=== PATIENT | female | born 1955 | race Caucasian/White ===

== ENCOUNTER 2018-10-18 15:00 | Emergency (ER) | payer MEDICARE, OTHER ==
[~2018-10-18] VITALS: Ht 167.6 cm; Wt 108.9 kg
[2018-10-18] MEDS ORDERED: NS IV 500 ML 500 ML IV ONE (16:02)
--- NOTE | 2018-10-18 16:15 | ED General ---
General Chief Complaint: Dizziness/Syncope Stated Complaint: DIZZINESS Nursing Triage Note: TO TRIAGE VIA WC. TWO SEPERAT COMPLAINTS. LAST NIGHT HAD A BOUT OF VOMITING AND WHEN SHE LAYED DOWN THE ROOM STARTED SPINNING. DENIES NAUSEA AT THIS TIME BUT STILL COMPLAINS OF DIZZINESS. X4 DAYS AGO A BOIL APPEARED ON HER LEFT HAD. BOIL OPENED UP YESTERDAY AND A LARGE AMOUNT OF PUSS EXPELLED AND SHE WOULD LIKE IT LOOKED AT. Nursing Sepsis Screen: No Definite Risk Source of Information: Patient Exam Limitations: No Limitations History of Present Illness Date Seen by Provider: Oct 18, 2018 Time Seen by Provider: 15:50 Initial Comments Here with a variety of complaints but seems to stem from wound to her left hand. She states that she got a bite to her left hand 4 days ago and then had a boil appear. She opened it up yesterday and a large amount of pus came out from that. Afterwards she started not feeling well and then later became dizzy. That started occurring last evening and she has intermittent dizziness since. She states the hand actually looks a little better today but she is still concerned about infection there. Denies fevers, nausea or vomiting. She does not take any significant meds and set omeprazole for abdominal discomfort occasionally. She does admit to drinking several times a week. She does not smoke. She is new to the area and does not have a local physician. She does use topical cream for eczema. Timing/Duration: 4-5 Days, Getting Worse Severity: Moderate Associated Systoms: No Cough, No Fever/Chills, No Headaches; Malaise; No Nausea /Vomiting, No Shortness of Air, No Weakness Allergies and Home Medications Allergies Coded Allergies: No Known Drug Allergies (Unverified , 10/18/18) Patient Home Medication List Home Medication List Reviewed: Yes Review of Systems Review of Systems Constitutional: see HPI; No chills, No fever EENTM: no symptoms reported Respiratory: no symptoms reported Cardiovascular: No edema, No palpitations, No syncope Gastrointestinal: No abdominal pain, No nausea, No vomiting Genitourinary: no symptoms reported Skin: see HPI, change in color, lesions Psychiatric/Neurological: Denies Headache; Other (dizziness) Past Pcpdmpe-Fvzbjb-Ftczcx Hx Past Med/Social Hx: Reviewed Nursing Past Med/Soc Hx Patient Social History Alcohol Use: Regular Use Alcohol Beverage of Choice: Whiskey Recreational Drug Use: No Smoking Status: Never a Smoker Recent Foreign Travel: No Contact w/Someone Who Travel: No Recent Infectious Disease Expo: No Past Medical History Surgeries: Yes Appendectomy Respiratory: No Cardiac: No Neurological: No : No Genitourinary: No Gastrointestinal: Yes Gastroesophageal Reflux Musculoskeletal: No Endocrine: No Family Medical History Reviewed Nursing Family Hx Physical Exam Vital Signs Vital Signs - First Documented 10/18/18 15:26 Temp 98.1 Pulse 96 Resp 16 B/P (MAP) 199/84 (122) Pulse Ox 97 O2 Delivery Room Air Capillary Refill : Less Than 3 Seconds Height, Weight, BMI Height: 5'6.00" Weight: 240lbs. oz. 108.527851ip; BMI Method:Stated General Appearance: No Apparent Distress HEENT: PERRL/EOMI, Pharynx Normal Neck: Non Tender, Supple Respiratory: Lungs Clear, Normal Breath Sounds Cardiovascular: Regular Rate, Rhythm, No Murmur Gastrointestinal: Non Tender, Soft Back: Normal Inspection, No CVA Tenderness, No Vertebral Tenderness Extremity: Normal Range of Motion, Non Tender Neurologic/Psychiatric: Alert, Oriented x3 Skin: Warm/Dry, Erythema (left hand around wound that she has the distal MCP area for the second digit on the dorsum of the hand. Does have 1 x 1 cm area of nodular density with skin peeling centrally and then surrounding erythema across the dorsum of the hand.) Progress/Results/Core Measures Suspected Sepsis Recent Fever Within 48 Hours: No Infection Criteria Present: Suspected New Infection New/Unexplained Altered Menta: No Sepsis Screen: No Definite Risk SIRS Temperature:98.1 Pulse: 96 Respiratory Rate: 16 Laboratory Tests 10/18/18 16:05: White Blood Count 7.0 Blood Pressure 199 /84 Mean: 122 Laboratory Tests 10/18/18 16:05: Creatinine 0.71, Platelet Count 182, Total Bilirubin 0.6 Results/Orders Lab Results Laboratory Tests Test 10/18/18 16:05 10/18/18 17:30 Range/Units White Blood Count 7.0 4.3-11.0 10^3/uL Red Blood Count 4.38 4.35-5.85 10^6/uL Hemoglobin 12.0 11.5-16.0 G/DL Hematocrit 37 35-52 % Mean Corpuscular Volume 83 80-99 FL Mean Corpuscular Hemoglobin 27 25-34 PG Mean Corpuscular Hemoglobin Concent 33 32-36 G/DL Red Cell Distribution Width 14.0 10.0-14.5 % Platelet Count 182 130-400 10^3/uL Mean Platelet Volume 11.1 H 7.4-10.4 FL Neutrophils (%) (Auto) 66 42-75 % Lymphocytes (%) (Auto) 25 12-44 % Monocytes (%) (Auto) 7 0-12 % Eosinophils (%) (Auto) 3 0-10 % Basophils (%) (Auto) 0 0-10 % Neutrophils # (Auto) 4.6 1.8-7.8 X 10^3 Lymphocytes # (Auto) 1.7 1.0-4.0 X 10^3 Monocytes # (Auto) 0.5 0.0-1.0 X 10^3 Eosinophils # (Auto) 0.2 0.0-0.3 10^3/uL Basophils # (Auto) 0.0 0.0-0.1 10^3/uL Sodium Level 141 135-145 MMOL/L Potassium Level 3.6 3.6-5.0 MMOL/L Chloride Level 106 98-107 MMOL/L Carbon Dioxide Level 26 21-32 MMOL/L Anion Gap 9 5-14 MMOL/L Blood Urea Nitrogen 10 7-18 MG/DL Creatinine 0.71 0.60-1.30 MG/DL Estimat Glomerular Filtration Rate > 60 BUN/Creatinine Ratio 14 Glucose Level 98 70-105 MG/DL Calcium Level 9.3 8.5-10.1 MG/DL Corrected Calcium 9.4 8.5-10.1 MG/DL Magnesium Level 2.0 1.8-2.4 MG/DL Total Bilirubin 0.6 0.1-1.0 MG/DL Aspartate Amino Transf (AST/SGOT) 20 5-34 U/L Alanine Aminotransferase (ALT/SGPT) 15 0-55 U/L Alkaline Phosphatase 81 40-136 U/L C-Reactive Protein High Sensitivity 3.54 H 0.00-0.50 MG/DL Total Protein 6.6 6.4-8.2 GM/DL Albumin 3.9 3.2-4.5 GM/DL Thyroid Stimulating Hormone (TSH) 1.09 0.35-4.94 UIU/ML Urine Color YELLOW Urine Clarity SLIGHTLY CLOUDY Urine pH 7 5-9 Urine Specific [place] 1.010 L 1.016-1.022 Urine Protein NEGATIVE NEGATIVE Urine Glucose (UA) NEGATIVE NEGATIVE Urine Ketones NEGATIVE NEGATIVE Urine Nitrite NEGATIVE NEGATIVE Urine Bilirubin NEGATIVE NEGATIVE Urine Urobilinogen NORMAL NORMAL MG/DL Urine Leukocyte Esterase 1+ H NEGATIVE Urine RBC (Auto) 4+ H NEGATIVE Urine RBC NONE /HPF Urine WBC RARE /HPF Urine Squamous Epithelial Cells 10-25 H /HPF Urine Crystals NONE /LPF Urine Bacteria TRACE /HPF Urine Casts NONE /LPF Urine Mucus NEGATIVE /LPF Urine Culture Indicated NO My Orders Orders - ANNE JEAN-BAPTISTE MD Saline Lock/Iv-Start (10/18/18 16:02) Ns Iv 500 Ml (Sodium Chloride 0.9%) (10/18/18 16:02) Comprehensive Metabolic Panel (10/18/18 16:02) Hs C Reactive Protein (10/18/18 16:02) Magnesium (10/18/18 16:02) Thyroid Stimulating Hormone (10/18/18 16:02) Ua Culture If Indicated (10/18/18 16:02) Cbc With Automated Diff (10/18/18 16:02) Medications Given in ED Current Medications Medications Dose Ordered Sig/Jr Route Start Time Stop Time Status Last Admin Dose Admin Sodium Chloride 500 ml @ 0 mls/hr Q0M ONCE IV 10/18/18 16:02 10/18/18 16:04 DC 10/18/18 16:21 500 MLS/HR Vital Signs/I&O 10/18/18 15:26 Temp 98.1 Pulse 96 Resp 16 B/P (MAP) 199/84 (122) Pulse Ox 97 O2 Delivery Room Air Capillary Refill : Less Than 3 Seconds Blood Pressure Mean: 122 Progress Note : Progress Note Seen and evaluated. IV, normal saline 500 mL bolus, labs and UA ordered. Monitor patient. 1808: Labs reviewed. No indication for admission. Bactrim DS one tab by mouth. Mupirocin ointment to wound. Amlodipine 5 mg by mouth ordered due to patient's hypertension. She states that she's had blood pressure elevation recently. We will go ahead and treat with a low dose and lower pain she will follow-up with primary care physician for continued evaluation of her high blood pressure. Discharged home with return precautions. Patient verbalize understanding instructions and agreement with plan. Departure Impression Primary Impression: Skin infection Additional Impression: High blood pressure Qualified Codes: I10 - Essential (primary) hypertension Disposition: HOME, SELF-CARE Condition: Improved Departure-Patient Inst. Decision time for Depature: 18:15 Referrals: NO,LOCAL PHYSICIAN (PCP/Family) Primary Care Physician Patient Instructions: Cellulitis (Skin Infection), Adult (DC), High Blood Pressure (DC) Add. Discharge Instructions: All discharge instructions reviewed with patient and/or family. Voiced understanding. Use mupirocin ointment over wound to hand 2-3 times daily and cover with a Band- Aid. Otherwise keep wound clean. Take blood pressure medicine as directed. Follow-up with her doctor within one week for recheck and further evaluation. Local medical staff listing was provided. You may use one of those physicians or of your choosing. Return for worse pain, fever, vomiting, weakness, breathing problems, red streaks up the arm or other concerns as needed. Scripts Amlodipine Besylate (Amlodipine Besylate) 5 Mg Tablet 5 MG PO DAILY, #30 TAB Prov: ANNE JEAN-BAPTISTE MD 10/18/18 Sulfamethoxazole/Trimethoprim (Sulfamethoxazole-Tmp Ds Tablet) 1 Each Tablet 1 EACH PO BID, #14 TAB 0 Refills Prov: ANNE JEAN-BAPTISTE MD 10/18/18 ANNE JEAN-BAPTISTE MD Oct 18, 2018 16:15
[2018-10-18 16:22] LABS: BASOPHILS % (AUTO) 0 % (0-10); EOSINOPHILS # (AUTO) 0.2 10^3/uL (0.0-0.3); EOSINOPHILS % (AUTO) 3 % (0-10); HEMATOCRIT 37 % (35-52); LYMPHOCYTES # (AUTO) 1.7 X 10^3 (1.0-4.0); LYMPHOCYTES % (AUTO) 25 % (12-44); MEAN CORPUSCULAR HEMOGLOBIN 27 PG (25-34); MEAN CORPUSCULAR HGB CONC 33 G/DL (32-36); MEAN CORPUSCULAR VOLUME 83 FL (80-99); MEAN PLATELET VOLUME 11.1 FL (7.4-10.4); MONOCYTES # (AUTO) 0.5 X 10^3 (0.0-1.0); MONOCYTES % (AUTO) 7 % (0-12); NEUTROPHILS # (AUTO) 4.6 X 10^3 (1.8-7.8); NEUTROPHILS % (AUTO) 66 % (42-75); PLATELET COUNT 182 10^3/uL (130-400)
[2018-10-18 16:39] LABS: ALANINE AMINOTRANSFERASE 15 U/L (0-55); ALBUMIN 3.9 GM/DL (3.2-4.5); ALKALINE PHOSPHATASE 81 U/L (40-136); BILIRUBIN,TOTAL 0.6 MG/DL (0.1-1.0); BUN/CREATININE RATIO 14; CALCIUM 9.3 MG/DL (8.5-10.1); CARBON DIOXIDE 26 MMOL/L (21-32); CHLORIDE 106 MMOL/L (98-107); CREATININE SERUM 0.71 MG/DL (0.60-1.30); GFR ESTIMATED > 60; GLUCOSE 98 MG/DL (70-105); POTASSIUM 3.6 MMOL/L (3.6-5.0); SODIUM 141 MMOL/L (135-145); TOTAL PROTEIN 6.6 GM/DL (6.4-8.2)
--- NOTE | 2018-10-18 16:59 | NUR ---
Tech reports attempting to obtain urine from pt and pt missed hat. No urine collected at this time.
[2018-10-18 17:35] LABS: BILIRUBIN,URINE NEGATIVE (NEGATIVE); CLARITY,URINE SLIGHTLY CLOUDY; COLOR,URINE YELLOW; GLUCOSE, URINE (UA) NEGATIVE (NEGATIVE); KETONES,URINE NEGATIVE (NEGATIVE); LEUKOCYTE ESTERASE ,URINE 1+ (NEGATIVE); NITRITE,URINE NEGATIVE (NEGATIVE); PH,URINE 7 (5-9); PROTEIN,URINE NEGATIVE (NEGATIVE); UROBILINOGEN,URINE NORMAL (NORMAL)
[2018-10-18 17:47] LABS: BACTERIA,URINE TRACE /HPF; WBC,URINE RARE /HPF
[2018-10-18] MEDS ORDERED: TRIM/SULFAMETH 160/800 (SEPTRA DS) TAB PO STA (18:06)
[2018-10-18] MEDS ORDERED: RX-MUPIROCIN (BACTROBAN) 2% OINT 22 GM TUBE TOP STA (18:06)
[2018-10-18] MEDS ORDERED: amLODIPine 5 MG (NORVASC) TAB PO ONE (18:15)
[2018-10-18] MEDS ORDERED: SULF-222 PO (18:17)
[2018-10-18] MEDS ORDERED: AMLO5TAB9 PO (18:17)
[2018-10-18 18:30] VITALS: BP 186/87
== END 2018-10-18 18:30 | disposition home or self-care (01) ==
LOC: ER 15:09
DX: L08.9 Local infection of the skin and subcutaneous tissue, unspecified (principal); R03.0 Elevated blood-pressure reading, without diagnosis of hypertension; K21.9 Gastro-esophageal reflux disease without esophagitis; Z90.49 Acquired absence of other specified parts of digestive tract
CPT/HCPCS: 36415; 80053; 81000; 83735; 84443; 85025; 86141; 96360

== ENCOUNTER 2022-01-07 12:15 | Inpatient (IN) | payer MEDICARE ==
[~2022-01-07] VITALS: Ht 168 cm; Wt 98.6 kg
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
[2022-01-07 12:15] VITALS: BP 180/79
[~2022-01-07 12:15] MED LIST: ACETAMINOPHEN 325 MG TABLET PO PRN; ALPRAZolam 0.25 MG (XANAX) TAB PO PRN; AMLO-250 PO; BISACODYL 10 MG SUPP (DULCOLAX) PR PRN; DOCUSATE SODIUM 100 MG (COLACE) CAP PO PRN; FLEET ENEMA ADULT 1 EA BTL PR PRN; HYDR-3924 PO; LACTULOSE SYRUP 10GM/15ML (ENULOSE) 30ML UDC PO PRN; LOPERAMIDE 2 MG (IMODIUM) TABLET PO PRN; MELATONIN 3 MG TABLET PO PRN; ONDANSETRON 4 MG (ZOFRAN) ORAL DISSOLVE TAB PO PRN; OXYC-473 PO; SULF-222 PO; diphenhydrAMINE 25 MG TAB (BENADRYL) PO PRN; guaiFENesin/CODEINE (ROBITUSSIN AC) 10ML UDC PO PRN
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
[2022-01-07] MEDS: DOCUSATE SODIUM 100 MG (COLACE) CAP PO SCH ×2 (15:36→20:41)
[2022-01-07] MEDS: polyethylene glycoL POWDER 17 GM (MIRALAX) PACK PO SCH ×2 (15:36→20:42)
[2022-01-07] MEDS: SENNA W/DOCUSATE (SENOKOT S) TABLET PO SCH ×2 (15:36→20:42)
[2022-01-07] MEDS ORDERED: NON-FORMULARY MEDICATION 1 EA EA (Hydralazine HCl 50 MG) PO SCH (16:00)
[2022-01-07 18:09] VITALS: BP 148/65
[2022-01-07] MEDS: hydrALAZINE (APRESOLINE) 25 MG TAB PO SCH ×2 (18:13→20:42)
[2022-01-07 19:52] VITALS: BP 128/60
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
--- NOTE | 2022-01-08 03:31 | Individualized Plan of Care ---
Individualized Plan of Care Rehab Nursing IPOC Order Admission Date January 07, 2022 at 12:15 Current Orders Orders Admission Order(Inpt,Obs,Sdc) (01/07/22 08:12) Vital Signs: Per Unit Policy ( 08,16,00 (01/07/22 08:12) Edgar Cunha , (01/07/22 08:12) Sequential Compression Device (01/07/22 08:12) Pizzamaker-Inpt Rehab Con (01/07/22 08:12) Rehab Nursing Orders-Ipoc (01/07/22 08:12) Physical Therapy Rehab Orders (01/07/22 08:12) Occupational Therapy Rehab Ord (01/07/22 08:12) Speech Therapy Rehab Orders (01/07/22 08:12) Cbc With Automated Diff (01/08/22 06:00) Comprehensive Metabolic Panel (01/08/22 06:00) Precautions (Aru) (01/07/22 08:12) Weekly Weight WEEK (01/07/22 08:12) Rehab-Intensity Of Therapy (01/07/22 08:12) Initiate Admission Nursing Pro .admission (01/07/22 08:12) Alprazolam Tablet (Xanax Tablet) (01/07/22 08:15) Calcium Carbonate Chew Tablet (Antacid C (01/07/22 08:15) Diphenhydramine Tablet (Benadryl Tablet) (01/07/22 08:15) Docusate Sodium Capsule (Colace Capsule) (01/07/22 09:00) Docusate Sodium Capsule (Colace Capsule) (01/07/22 08:15) Bisacodyl Suppository (Dulcolax Supposit (01/07/22 08:15) Lactulose Oral Solution (Enulose Oral So (01/07/22 08:15) Na Phos/Na Biphos Enema (Fleet Enema B[place]on (01/07/22 08:15) Guaifenesin/Codeine Syrup (Robitussin Ac (01/07/22 08:15) Loperamide Tablet (Imodium Tablet) (01/07/22 08:15) Melatonin Tablet (Melatonin Tablet) (01/07/22 08:15) Polyethylene Glycol Powder Pkt (Miralax (01/07/22 09:00) Ondansetron Oral Dissolve Tab (Zofran (01/07/22 08:15) Senna S Tablet (Senokot S Tablet) (01/07/22 09:00) Acetaminophen Tablet/Caplet (Tylenol T (01/07/22 08:15) Code/Resuscitation (01/07/22 08:12) Initiate Admission Nursing Pro .admission (01/07/22 08:12) Admission Arrival Bed Request (01/07/22 12:23) General/Regular (01/07/22 Lunch) Patient Visit (01/07/22 ) Pt Eval Moderate Complexity (01/07/22 ) Functional Activities, Ea 15 (01/07/22 ) Patient Visit (01/07/22 ) Pt Eval Moderate Complexity (01/07/22 ) Self Care/Home Mgmt/Adl 15 Min (01/07/22 ) Oxycodone Immediate Rel Tablet (Oxyir Ta (01/07/22 16:00) (Nf) Hydralazine Hcl (01/07/22 16:00) Hydralazine Tablet (Apresoline Tablet) (01/07/22 16:30) Oxycodone Immediate Rel Tablet (Oxyir Ta (01/08/22 05:45) Diclofenac 1% Gel (Voltaren 1% Gel) (01/08/22 09:00) Heating Pad (01/08/22 05:44) Oxycodone Immediate Rel Tablet (Oxyir Ta (01/08/22 05:46) Potassium Chloride (Tablet) (Klor Con Ta (01/08/22 11:15) Potassium Chloride (Tablet) (Klor Con Ta (01/09/22 07:00) Patient Visit (01/08/22 ) Exercise Therap, Ea 15 Min (01/08/22 ) Rehab Nursing Orders: Ongoing Assess. of Cognitive Status, Ongoing Assess. of Function Status, Bladder Management, Bladder Scan, Bladder Training, Bowel Management, Bowel Training, Disease Management & Educaiton, DVT Prophylaxis, Fall Prevention, Fluid/Electrolyte/Nutrition Mgmt, Infection Prevention, Medication Management & Education, Management of Risks & Complications, Management of Skin Intergrity, Nutrition Management, Pain Management, Patient/Family Support, Safety Management, Wound Management Intensity of Therapy to be met Patient to be seen: Min.3h per day/5 of 7d PT IPOC Problem List: Activity Tolerance, Functional Strength, Safety, Balance, Gait, Transfer, Bed Mobility Treatment Plan: Continue Plan of Care Bed Mobility, Concurrent Therapy, Education, Functional Activity Terry, Functional Strength, Group Therapy, Gait, Safety, Therapeutic Exercise, Transfers Treatment Duration: Jan 29, 2022 Frequency: At least 5 of 7 days/Wk (IRF) Estimated Hrs Per Day: 1.5 hours per day OT IPOC Problems: Decreased Activ Tolerance, Decreased UE Strength, Impaired Coordination, Impaired Funct Balance, Impaired I ADL's, Impaired Self-Care Skills, Restricted Funct UE ROM OT Treatment, Training and Edu: Yes Plan of Care: ADL Retraining, Functional Mobility, Group Exercise/Act as Ind, UE Funct Exercise/Act Treatment Duration: Jan 28, 2022 Frequency: At least 5 of 7 days/Wk (IRF) Estimated Hrs Per Day: 1.[address] IPOC Speech Therapy Treatment Plan: Discontinue ST Treatment Duration: January 07, 2022 Frequency: Modified Program (IRF) Estimated Hrs Per Day: Other Pizzamaker/Case Mgmt Pizzamaker/Case Managemen: Discharge Planning Dietitian/Propellant Assembler Dietitian/Propellant Assembler to monitor nutritional status and make changes and/or recommendations as needed and work with speech pathology on dietary upgrades as the occur. Physician IPOC Medical Issues being managed closely and that require the 24 hour availability of a physician: Complex cervical spinal cord traumatic injury will require close monitoring for decompensation and infection and neurological emergencies. Medical Issues: Bowel/Bladder Function, DVT Prophylaxis, Falls Precautions, Fluid/Electrolyte/Nutrition Balance, Infection Protection, Pain Management, Wound Care Brief Synthesis of Preadmission Screen, Post-Admission Evaluation, and Therapy Evaluations: PT and OT will focus on regaining function in order to use assistive devices to help increase independence to return to independent living Medical Prognosis: Good Anticipated Length of Stay: 7 days LISY BOTELLO DO January 08, 2022 03:31
[2022-01-08 06:07] LABS: BASOPHILS % (AUTO) 1 % (0-10); EOSINOPHILS # (AUTO) 0.1 10^3/uL (0.0-0.3); EOSINOPHILS % (AUTO) 2 % (0-10); HEMATOCRIT 36 % (35-52); HEMOGLOBIN 11.7 g/dL (11.5-16.0); LYMPHOCYTES # (AUTO) 1.2 10^3/uL (1.0-4.0); LYMPHOCYTES % (AUTO) 18 % (12-44); MEAN CORPUSCULAR HEMOGLOBIN 29 pg (25-34); MEAN CORPUSCULAR HGB CONC 32 g/dL (32-36); MEAN CORPUSCULAR VOLUME 88 fL (80-99); MEAN PLATELET VOLUME 10.4 fL (9.0-12.2); MONOCYTES # (AUTO) 0.4 10^3/uL (0.0-1.0); MONOCYTES % (AUTO) 7 % (0-12); NEUTROPHILS % (AUTO) 73 % (42-75); PLATELET COUNT 159 10^3/uL (130-400); WHITE BLOOD COUNT 6.8 10^3/uL (4.3-11.0)
[2022-01-08 06:26] LABS: ALBUMIN 3.3 GM/DL (3.2-4.5); POTASSIUM 3.1 MMOL/L (3.6-5.0)
[2022-01-08 06:28] LABS: TOTAL PROTEIN 5.9 GM/DL (6.4-8.2)
[2022-01-08 06:30] LABS: BILIRUBIN,TOTAL 1.1 MG/DL (0.1-1.0)
[2022-01-08 06:32] LABS: CREATININE SERUM 0.59 MG/DL (0.60-1.30)
[2022-01-08 07:26] VITALS: BP 143/71
[2022-01-08] MEDS: hydrALAZINE (APRESOLINE) 25 MG TAB PO SCH ×3 (09:14→20:57)
[2022-01-08] MEDS: SENNA W/DOCUSATE (SENOKOT S) TABLET PO SCH ×2 (09:18→20:57)
[2022-01-08] MEDS: polyethylene glycoL POWDER 17 GM (MIRALAX) PACK PO SCH ×2 (09:19→20:57)
[2022-01-08] MEDS: DOCUSATE SODIUM 100 MG (COLACE) CAP PO SCH ×2 (09:19→20:57)
[2022-01-08] MEDS: DICLOFENAC 1% GEL 100 GM (VOLTAREN) TUBE TOP SCH ×4 (10:01→20:58)
[2022-01-08] MEDS ORDERED: KCL 10 MEQ TAB (MICRO K) PO ONE (11:15)
--- NOTE | 2022-01-08 11:44 | Physical Therapy Daily Note ---
PT Daily Note-Current Subjective Pt sitting up in recliner, having just received pain gel and repositioned to comfort. Pt agrees to PT for Supine & Seated Ex. Mental Status Patient Orientation: Person, Place, Time, Situation Attachments: Other-See Comments (Cervical collar) Transfers SCALE: Activities may be completed with or without assistive devices. 9-Ssxqljmhug-cvbvljm completes the activity by him/herself with no assistance from a helper. 5-Set-up or Clean-up Assistance-helper sets up or cleans up; patient completes activity. [place] assists only prior to or following the activity. 4-Supervision or Touching Assistance-helper provides verbal cues and/or touching/steadying and/or contact guard assistance as patient completes activity. Assistance may be provided throughout the activity or intermittently. 3-Partial/Moderate Assistance-helper does LESS THAN HALF the effort. [place] lifts, holds or supports trunk or limbs, but provides less than half the effort. 2-Substantial/Maximal Assistance-helper does MORE THAN HALF the effort. [place] lifts or holds trunk or limbs and provides more than half the effort. 6-Lppcjnipa-srsfss does ALL the effort. Patient does none of the effort to complete the activity. Or, the assistance of 2 or more helpers is required for the patient to complete the activity. If activity was not attempted, code reason: 7-Patient Refused. 9-Not Applicable-not attempted and the patient did not perform the activity before the current illness, exacerbation or injury. 10-Not Attempted due to Environmental Limitations-(lack of equipment, weather restraints, etc.). 88-Not Attempted due to Medical Conditions or Safety Concerns. Exercises Supine Ex: Ankle pumps, Quad Set, Glut sets, Heel Slides, Hip abd/add Supine Reps: 15 Seated Therapy Exercises: Ankle pumps, Long arc quads, Hip flexion Seated Reps: 15 Treatments Pt completes Supine & Seated EX then rests in recliner at end of tx. All needs met, call light in hand. Assessment Current Status: Good Progress Pt enjoys Ex and reports feeling like good stretch. PT Longterm Goals Commercial Sales Director Goals PT Longterm Goals Time Frame: Jan 29, 2022 Roll Left & Right (QC): 6 Sit to Lying (QC): 6 Lying-Sitting on Side/Bed(QC): 6 Sit to Stand (QC): 6 Chair/Nuv-wf-Msbuc Xfer(QC): 6 Toilet Transfer (QC): 6 Car Transfer (QC): 6 Does the Patient Walk: Yes Walk 10 feet (QC): 6 Walk 50ft with 2 Turns (QC): 6 Walk 150 ft (QC): 6 Walking 10ft on Uneven Surface: 6 1 Step (curb) (QC): 4 4 Steps (QC): 4 12 Steps (QC): 4 Picking up an Object (QC): 6 Wheel 50 feet with 2 turns (QC: 9 Type: N/A Wheel 150 feet: 9 Type: N/A PT Plan Treatment/Plan Treatment Plan: Continue Plan of Care Treatment Plan: Bed Mobility, Concurrent Therapy, Education, Functional Activity Terry, Functional Strength, Group Therapy, Gait, Safety, Therapeutic Exercise, Transfers Treatment Duration: Jan 29, 2022 Frequency: At least 5 of 7 days/Wk (IRF) Estimated Hrs Per Day: 1.5 hours per day Patient and/or Family Agrees t: Yes Time/GCodes Time In: 1100 Time Out: 1120 Total Billed Treatment Time: 20 Total Billed Treatment 1, EX (20m) TERESA TRIPATHI PTA January 08, 2022 11:43
[2022-01-08 13:58] VITALS: BP 136/60
[2022-01-08] MEDS: CALCIUM CARBONATE 500 MG (TUMS) TAB.CHEW PO PRN (17:59)
[2022-01-08 20:00] VITALS: BP 133/61
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
[2022-01-09] MEDS: KCL 10 MEQ TAB (MICRO K) PO SCH (06:19)
[2022-01-09 07:22] VITALS: BP 122/72
[2022-01-09] MEDS: SENNA W/DOCUSATE (SENOKOT S) TABLET PO SCH ×2 (08:28→20:34)
[2022-01-09] MEDS: hydrALAZINE (APRESOLINE) 25 MG TAB PO SCH ×3 (08:29→20:34)
[2022-01-09] MEDS: DOCUSATE SODIUM 100 MG (COLACE) CAP PO SCH ×2 (08:29→20:34)
[2022-01-09] MEDS: DICLOFENAC 1% GEL 100 GM (VOLTAREN) TUBE TOP SCH ×4 (08:30→20:40)
[2022-01-09] MEDS: polyethylene glycoL POWDER 17 GM (MIRALAX) PACK PO SCH ×2 (08:30→20:40)
[2022-01-09 14:11] VITALS: BP 164/72
[2022-01-09] MEDS: CALCIUM CARBONATE 500 MG (TUMS) TAB.CHEW PO PRN (19:02)
[2022-01-09 19:42] VITALS: BP 147/67
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
[2022-01-10] MEDS: KCL 10 MEQ TAB (MICRO K) PO SCH (06:42)
[2022-01-10 07:41] VITALS: BP 151/65
--- NOTE | 2022-01-10 09:01 | Physical Therapy Daily Note ---
PT Daily Note-Current Subjective 800-900 Upon arrival, pt was seated in recliner. Pt states she did not sleep well. Pt reports 4/10 pain in L upper trap area, pt states that there is a pulling sensation in that area. Pt agrees to PT. [id number] Upon arrival, pt was seated in recliner. Pt agrees to PT. Pain Numeric Pain Scale: 4 Mental Status Patient Orientation: Person, Place, Time, Situation Attachments: Other-See Comments (aspen neck brace) Transfers SCALE: Activities may be completed with or without assistive devices. 7-Atnpwogeur-wmlgiab completes the activity by him/herself with no assistance from a helper. 5-Set-up or Clean-up Assistance-helper sets up or cleans up; patient completes activity. [place] assists only prior to or following the activity. 4-Supervision or Touching Assistance-helper provides verbal cues and/or touching/steadying and/or contact guard assistance as patient completes activity. Assistance may be provided throughout the activity or intermittently. 3-Partial/Moderate Assistance-helper does LESS THAN HALF the effort. [place] lifts, holds or supports trunk or limbs, but provides less than half the effort. 2-Substantial/Maximal Assistance-helper does MORE THAN HALF the effort. [place] lifts or holds trunk or limbs and provides more than half the effort. 1-Bmbcgsosf-xasxog does ALL the effort. Patient does none of the effort to complete the activity. Or, the assistance of 2 or more helpers is required for the patient to complete the activity. If activity was not attempted, code reason: 7-Patient Refused. 9-Not Applicable-not attempted and the patient did not perform the activity before the current illness, exacerbation or injury. 10-Not Attempted due to Environmental Limitations-(lack of equipment, weather restraints, etc.). 88-Not Attempted due to Medical Conditions or Safety Concerns. Sit to Stand (QC): 4 Gait Training Does the Patient Walk?: Yes Distance: 192' Walk 10 feet (QC): 4 Walk 50 ft with 2 Turns(QC): 4 Walk 150 ft (QC): 4 Gait Persons Needed: 1 Gait Assistive Device: FWW 800-900 Pt ambulated slowly, with step through GT pattern. Pt demonstrated no LOB. Pt ambulated from room to elevators and needed a rest break. Pt then ambulated through recinos passed gym, and back to her room, and required a rest break. During Gt pt stated she had a moment of dizziness, but did not loss balance. [id number] Pt ambulates 200' from room around 2nd floor lobby, and back to room. Pt required a rest break once she got back to room. Exercises Supine Ex: Ankle pumps, Heel Slides, Short Arc Quads, Straight leg raise, Hip abd/add Seated Therapy Exercises: Ankle pumps (2 20x), Long arc quads (2 20x), Hip flexion (2 20x), Hamstring Curls, Hip abd/add (2 20x) Treatments 800-900am Pt performed and completed all Exs listed above. Pt ambulated from room around lobby passed gym and back to room. Once PT was completed pt was seated in recliner with call light in reach and all needs met. 1245-1300pm Pt ambulated 200' from room down recinos and back to room. During tx session pt used the rest room. Once pt was concluded, pt was seated back in recliner with call light and tray in reach and all needs met. Assessment Current Status: Good Progress Pt would benefit from continued PT to improve on GT, strength, and activity tolerance. PT Halfway Goals Orthopaedic Nurse Goals PT Orthopaedic Nurse Goals Time Frame: Jan 29, 2022 Roll Left & Right (QC): 6 Sit to Lying (QC): 6 Lying-Sitting on Side/Bed(QC): 6 Sit to Stand (QC): 6 Chair/Oga-ej-Kodrv Xfer(QC): 6 Toilet Transfer (QC): 6 Car Transfer (QC): 6 Does the Patient Walk: Yes Walk 10 feet (QC): 6 Walk 50ft with 2 Turns (QC): 6 Walk 150 ft (QC): 6 Walking 10ft on Uneven Surface: 6 1 Step (curb) (QC): 4 4 Steps (QC): 4 12 Steps (QC): 4 Picking up an Object (QC): 6 Wheel 50 feet with 2 turns (QC: 9 Type: N/A Wheel 150 feet: 9 Type: N/A PT Plan Problem List Problem List: Activity Tolerance, Functional Strength, Gait Treatment/Plan Treatment Plan: Continue Plan of Care Treatment Plan: Bed Mobility, Concurrent Therapy, Education, Functional Activity Terry, Functional Strength, Group Therapy, Gait, Safety, Therapeutic Exercise, Transfers Treatment Duration: Jan 29, 2022 Frequency: At least 5 of 7 days/Wk (IRF) Estimated Hrs Per Day: 1.5 hours per day Patient and/or Family Agrees t: Yes Safety Risks/Education Patient Education: Gait Training, Correct Positioning Teaching Recipient: Patient Teaching Methods: Discussion Response to Teaching: Verbalize Understanding Time/GCodes Time In: 800 Time Out: 900 Total Billed Treatment Time: 60 Total Billed Treatment 800-900 1, Ex (30), GT (30) [id number] 1, FA (15) AKANKSHA TAYLOR PTA January 10, 2022 09:01
[2022-01-10] MEDS: polyethylene glycoL POWDER 17 GM (MIRALAX) PACK PO SCH ×2 (09:42→21:33)
[2022-01-10] MEDS: hydrALAZINE (APRESOLINE) 25 MG TAB PO SCH ×3 (09:42→21:24)
[2022-01-10] MEDS: SENNA W/DOCUSATE (SENOKOT S) TABLET PO SCH ×2 (09:43→21:33)
[2022-01-10] MEDS: DOCUSATE SODIUM 100 MG (COLACE) CAP PO SCH ×2 (09:43→21:33)
[2022-01-10] MEDS: DICLOFENAC 1% GEL 100 GM (VOLTAREN) TUBE TOP SCH ×4 (09:44→21:28)
--- NOTE | 2022-01-10 11:17 | Occupational Ther Daily Note ---
OT Current Status-Daily Note Subjective Pt up in recliner, agreeable to OT tx. ADL-Treatment Therapy Code Descriptions/Definitions Functional [place] Measure: 0=Not Assessed/NA 4=Minimal Assistance 1=Total Assistance 5=Supervision or Setup 2=Maximal Assistance 6=Modified [place] 3=Moderate Assistance 7=Complete IndependenceSCALE: Activities may be completed with or without assistive devices. 3-Schzkewrcy-bcgpuwr completes the activity by him/herself with no assistance from a helper. 5-Set-up or Clean-up Assistance-helper sets up or cleans up; patient completes activity. [place] assists only prior to or following the activity. 4-Supervision or Touching Assistance-helper provides verbal cues and/or touching/steadying and/or contact guard assistance as patient completes activity. Assistance may be provided throughout the activity or intermittently. 3-Partial/Moderate Assistance-helper does LESS THAN HALF the effort. [place] lifts, holds or supports trunk or limbs, but provides less than half the effort. 2-Substantial/Maximal Assistance-helper does MORE THAN HALF the effort. [place] lifts or holds trunk or limbs and provides more than half the effort. 9-Nocfhsxyw-ssljev does ALL the effort. Patient does none of the effort to co mplete the activity. Or, the assistance of 2 or more helpers is required for the patient to complete the activity. If activity was not attempted, code reason: 7-Patient Refused. 9-Not Applicable-not attempted and the patient did not perform the activity before the current illness, exacerbation or injury. 10-Not Attempted due to Environmental Limitations-(lack of equipment, weather restraints, etc.). 88-Not Attempted due to Medical Conditions or Safety Concerns. Shower/Bathe Self (QC): 3 (Min A with washing buttocks.) Upper Body Dressing (QC): 3 (Min A with doffing shirt over C-Coller. Pt able to don shirt) Lower Body Dressing (QC): 4 (Supervision.) On/Off Footwear: 5 (set up with gripper socks.) Toileting Hygiene (QC): 3 (Min A with buttocks, pt able to manage clothing. ) Toilet Transfer (QC): 4 (Supervision) Other Treatment Pt up in recliner, agreeable to OT tx. Pt used FWW to go into bathroom and transfer to toilet. Pt completed toileting, then transferred to NC to complete d ressing and showering. C-Collar remained in place throughout shower, pads changed post shower. Pt returned to recliner. Post tx, pt in recliner, call light in reach and all needs met. Education OT Patient Education: Correct positioning, Energy conservation, Modified ADL techniques, Progress toward Goal/Update tx plan, Purpose of tx/functional activ ities Teaching Recipient: Patient Teaching Methods: Discussion Response to Teaching: Verbalize Understanding OT Short Term Goals Short Term Goals Time Frame: January 19, 2022 Toileting hygiene: 4 Shower/bathe self: 4 Lower body dressin OT Residential Goals Residential Goals Time Frame: Jan 28, 2022 Eating (QC): 6 Oral Hygiene (QC): 6 Toileting Hygiene (QC): 6 Shower/Bathe Self (QC): 5 Upper Body Dressing (QC): 6 Lower Body Dressing (QC): 6 On/Off Footwear (QC): 6 Additional Goals: 1-Demonstrate ADL Tasks, 2-Verbalize Understanding, 3- ImproveStrength/Terry 1=Demonstrate adherence to instructed precautions during ADL tasks. 2=Patient will verbalize/demonstrate understanding of assistive devices/modifications for ADL. 3=Patient will improve strength/tolerance for activity to enable patient to perform ADL's. OT Education/Plan Problem List/Assessment Assessment: Decreased Activ Tolerance, Decreased UE Strength, Impaired Funct Balance, Impaired I ADL's, Impaired Self-Care Skills Discharge Recommendations Plan/Recommendations: Continue POC Treatment Plan/Plan of Care Patient would benefit from OT for education, treatment and training to promote independence in ADL's, mobility, safety and/or upper extremity function for ADL's. Plan of Care: ADL Retraining, Functional Mobility, Group Exercise/Act as Ind, UE Funct Exercise/Act Treatment Duration: Jan 28, 2022 Frequency: At least 5 of 7 days/Wk (IRF) Estimated Hrs Per Day: 1.5 hours per day Rehab Potential: Fair Time/GCodes Start Time: 10:00 Stop Time: 11:15 Total Time Billed (hr/min): 75 Billed Treatment Time 1, ADL 5 MEGA POWELL OT January 10, 2022 11:17
--- NOTE | 2022-01-10 12:41 | ST Cognitive Linguistic Eval ---
Speech Evaluation-General Medical Diagnosis Traumatic Spinal Cord Dysfunction Onset Date: December 29, 2021 Therapy Diagnosis Therapy Diagnosis: Intact Neurocognitive Skills Precautions Precautions: Fall Precautions/Isolations: Fall Prevention, Standard Precautions Referral Referring Physician: Dr. Velvet Saldivar Reason for Referral: Evaluation/Treatment Medical History Current History The patient is a 66 year-old female with a past medical history of HTN and GERD, who presented from [facility] status post C5-C6 cervical spine fracture. Reviewed History: Yes Social History Current Living Status: Homeless Speech PLF-Current Status Prior Level of Function The patient denied difficulty with cognition, speech, language, or swallowing prior to hospitalization or currently. Subjective The patient was seated upright in her recliner, awake and alert upon entrance to her room by the clinician. The patient greeted the clinician appropriately and was agreeable to participation in the cognitive linguistic evaluation. Language Eval: Auditory Comprehends Simple Yes/No Ques: Functional Indent/Objects Multiple Rich: Functional Ident/Pics in Multiple Rich: Functional Follows 1-Step Commands: Functional Follows Complex Directions: Functional Follows General Conversations: Functional Language Eval: Verbal Language Completes Spontaneous Greeting: Functional Produces Auto, Serial Info: Functional Imitates Simple Words/Phrases: Functional Word Finding: Functional Requests Basic Needs: Functional States Basic Personal Info: Functional Expresses Complex Ideas: Functional Language Evaluation: Reading Follows Simple Written Direct: Functional Language Evaluation: Writing Writes to Simple Dictation: Functional Cognitive Patient Orientation The patient was independently oriented to self, location, month, day of week, date, and year. Objective Cognitive Domain Attention: WNL Memory: WNL Problem Solving: Functional Executive Functions: WNL Visuospatial Skills: WNL Composite Severity Rating: WNL Clock Drawing Severity Rating: WNL Objective Formal/Standardized Tests [facility] Mental Status Exam Results The patient demonstrated a result of +29/30 on the SLUMS correlating to neurocognitive skills within normal limits. Oral Motor/Speech Production The patient does not display dysarthria or apraxia of speech on this date. The patient remains 100% intelligible in known and unknown contexts. Impression The patient demonstrated neurocognitive skills within normal limits. The patient received one point deducted as she required a verbal cue to recall five of five objects following a delay. Speech Patient Assess Expression of Ideas/Wants: Expression (4) Understanding Verbal Content: Understands (4) Brief Interview-Mental Status: Yes Repetition of Three Words: Three (3) Temporal Orientation: Year: Correct (3) Temporal Orientation: Month: Accurate within 5 days(2) Temporal Orientation: Day: Correct (1) Recall : Wear to say "Sock": Yes, no cue required (2) Recall : Color: Yes, no cue required (2) Recall : Bed: Yes,after cueing (1) Memory/Recall Ability: Current season, Location of own room, Staff names and faces, That he or she is in a hsp/hsp unit Speech-Plan Treatment Plan Speech Therapy Treatment Plan: Discontinue ST Treatment Duration: January 07, 2022 Frequency: 1 time per week Estimated Hrs Per Day: .5 hour per day Rehab Potential: Good Pt/Family Agrees to Plan: Yes Safety Risks/Education Teaching Recipient: Patient Teaching Methods: Discussion Response to Teaching: Verbalize Understanding Education Topics Provided: Results of SLUMS Time Speech Therapy Time In: 09:00 Speech Therapy Time Out: 09:30 Total Billed Time: 30 Billed Treatment Time 1, MARIA INES ALMONTE [facility] January 10, 2022 12:41
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
[2022-01-10 20:14] VITALS: BP 116/52
[2022-01-10] MEDS: CALCIUM CARBONATE 500 MG (TUMS) TAB.CHEW PO PRN (21:27)
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
[2022-01-11] MEDS: KCL 10 MEQ TAB (MICRO K) PO SCH (06:50)
[2022-01-11 07:34] VITALS: BP 120/69
[2022-01-11] MEDS: CALCIUM CARBONATE 500 MG (TUMS) TAB.CHEW PO PRN (08:13)
[2022-01-11] MEDS: hydrALAZINE (APRESOLINE) 25 MG TAB PO SCH ×3 (08:13→21:06)
[2022-01-11] MEDS: DOCUSATE SODIUM 100 MG (COLACE) CAP PO SCH ×2 (08:21→21:06)
[2022-01-11] MEDS: SENNA W/DOCUSATE (SENOKOT S) TABLET PO SCH ×2 (08:21→21:09)
[2022-01-11] MEDS: polyethylene glycoL POWDER 17 GM (MIRALAX) PACK PO SCH ×2 (08:21→21:09)
[2022-01-11] MEDS: DICLOFENAC 1% GEL 100 GM (VOLTAREN) TUBE TOP SCH ×4 (08:22→21:07)
--- NOTE | 2022-01-11 09:55 | Occupational Ther Daily Note ---
OT Current Status-Daily Note Subjective Pt reports 3/10 pain in neck. Mental Status/Objective Patient Orientation: Person, Place, Time, Situation Attachments: Other-See Comments (C-Collar) ADL-Treatment Therapy Code Descriptions/Definitions Functional [place] Measure: 0=Not Assessed/NA 4=Minimal Assistance 1=Total Assistance 5=Supervision or Setup 2=Maximal Assistance 6=Modified [place] 3=Moderate Assistance 7=Complete IndependenceSCALE: Activities may be completed with or without assistive devices. 1-Bfriugatiu-mhzdexq completes the activity by him/herself with no assistance from a helper. 5-Set-up or Clean-up Assistance-helper sets up or cleans up; patient completes activity. [place] assists only prior to or following the activity. 4-Supervision or Touching Assistance-helper provides verbal cues and/or touching/steadying and/or contact guard assistance as patient completes activity. Assistance may be provided throughout the activity or intermittently. 3-Partial/Moderate Assistance-helper does LESS THAN HALF the effort. [place] lifts, holds or supports trunk or limbs, but provides less than half the effort. 2-Substantial/Maximal Assistance-helper does MORE THAN HALF the effort. [place] lifts or holds trunk or limbs and provides more than half the effort. 6-Ebycukxad-trxbhf does ALL the effort. Patient does none of the effort to complete the activity. Or, the assistance of 2 or more helpers is required for the patient to complete the activity. If activity was not attempted, code reason: 7-Patient Refused. 9-Not Applicable-not attempted and the patient did not perform the activity before the current illness, exacerbation or injury. 10-Not Attempted due to Environmental Limitations-(lack of equipment, weather restraints, etc.). 88-Not Attempted due to Medical Conditions or Safety Concerns. Oral Hygiene (QC): 6 (IND standing at sink.) Toileting Hygiene (QC): 6 (IND with toileting and clothing management.) Other Treatment Pt up in recliner, agreeable to OT tx. Pt used FWW in room to go into bathroom. She completed toileting and oral care independently, then used FWW to gym. OT tx focused on increasing fine motor strength and coordination BUEs. Pt completed moderate resistance theraputty task (red theraputty), removing all beads from putty. She then completed various exercises using theraputty including the following: rolling putty into log, pinches, finger abduction/adduction, finger extension, & rolling putty into balls. Pt c/o increased pain in L thumb along MCP joint with activity/resistance. Pt then placed x45 pegs into foam pegboard, alternating hands, taking rest breaks as needed. OT educated pt on using toilet tongs to increase independence with hygiene post BM, she verbalized understanding and will attempt to use device next time she goes to the bathroom. Pt also provided with light resistance implementation coordinator sponge (yellow), educated on implementation coordinator squeezes and finger to thumb opposition in order to continue strengthening fine motor muscles, she demo'd understanding. Pt used FWW to return to her room, transferring to recliner. Post tx, pt in recliner, call light in reach and all needs met. Education OT Patient Education: Correct positioning, Energy conservation, Exercise program, Modified ADL techniques, Progress toward Goal/Update tx plan, Purpose of tx/functional activities Teaching Recipient: Patient Teaching Methods: Discussion Response to Teaching: Verbalize Understanding OT Short Term Goals Short Term Goals Time Frame: January 19, 2022 Toileting hygiene: 4 Shower/bathe self: 4 Lower body dressin OT Teletypesetter Goals Shelter Goals Time Frame: Jan 28, 2022 Eating (QC): 6 Oral Hygiene (QC): 6 Toileting Hygiene (QC): 6 Shower/Bathe Self (QC): 5 Upper Body Dressing (QC): 6 Lower Body Dressing (QC): 6 On/Off Footwear (QC): 6 Additional Goals: 1-Demonstrate ADL Tasks, 2-Verbalize Understanding, 3- ImproveStrength/Terry 1=Demonstrate adherence to instructed precautions during ADL tasks. 2=Patient will verbalize/demonstrate understanding of assistive de vices/modifications for ADL. 3=Patient will improve strength/tolerance for activity to enable patient to perform ADL's. OT Education/Plan Problem List/Assessment Assessment: Decreased Activ Tolerance, Decreased UE Strength, Impaired Funct Balance, Impaired I ADL's, Impaired Self-Care Skills, Restricted Funct UE ROM Discharge Recommendations Plan/Recommendations: Continue POC Treatment Plan/Plan of Care Patient would benefit from OT for education, treatment and training to promote independence in ADL's, mobility, safety and/or upper extremity function for ADL's. Plan of Care: ADL Retraining, Functional Mobility, Group Exercise/Act as Ind, UE Funct Exercise/Act Treatment Duration: Jan 28, 2022 Frequency: At least 5 of 7 days/Wk (IRF) Estimated Hrs Per Day: 1.5 hours per day Rehab Potential: Good Time/GCodes Start Time: 09:15 Stop Time: 10:15 Total Time Billed (hr/min): 60 Billed Treatment Time 1, ADL (10'), FA 3 (50') MEGA POWELL OT January 11, 2022 09:55
--- NOTE | 2022-01-11 11:54 | Physical Therapy Daily Note ---
PT Daily Note-Current Subjective [id number] Upon arrival, pt was seated in recliner. Pt states that she "slept a lot better than before." Pt reports that her upper trap area feel "stiff and tight." Pt agrees to PT. [id number] Upon arrival, pt was seated in recliner. Pt agrees to PT. Pain Comment: Pt reports no pain. Mental Status Patient Orientation: Person, Place, Time, Situation Attachments: Other-See Comments ([place] neck brace) Transfers SCALE: Activities may be completed with or without assistive devices. 9-Rsttejnldw-fjywjll completes the activity by him/herself with no assistance from a helper. 5-Set-up or Clean-up Assistance-helper sets up or cleans up; patient completes activity. [place] assists only prior to or following the activity. 4-Supervision or Touching Assistance-helper provides verbal cues and/or touching/steadying and/or contact guard assistance as patient completes activity. Assistance may be provided throughout the activity or intermittently. 3-Partial/Moderate Assistance-helper does LESS THAN HALF the effort. [place] lifts, holds or supports trunk or limbs, but provides less than half the effort. 2-Substantial/Maximal Assistance-helper does MORE THAN HALF the effort. [place] lifts or holds trunk or limbs and provides more than half the effort. 2-Amsbuyufi-bwqfiv does ALL the effort. Patient does none of the effort to complete the activity. Or, the assistance of 2 or more helpers is required for the patient to complete the activity. If activity was not attempted, code reason: 7-Patient Refused. 9-Not Applicable-not attempted and the patient did not perform the activity before the current illness, exacerbation or injury. 10-Not Attempted due to Environmental Limitations-(lack of equipment, weather restraints, etc.). 88-Not Attempted due to Medical Conditions or Safety Concerns. Sit to Stand (QC): 4 Gait Training Does the Patient Walk?: Yes Distance: 350' Walk 10 feet (QC): 4 Walk 50 ft with 2 Turns(QC): 4 Walk 150 ft (QC): 4 Gait Persons Needed: 1 Gait Assistive Device: FWW [id number] [facility] room [facility] Pt ambulated with a step to, reciprocal GT pattern, and was CGA. Pt demonstrated no LOB. [id number] Pt ambulated 150' with quad cane, around 2nd floor lobby, pt was CGA. Pt demonstrated no LOB. Pt stated the she became more fatigued with quad cane, and required a RB. Exercises Supine Ex: Ankle pumps (2 20x), Heel Slides (2 20x), Knee to chest (2 10x), Short Arc Quads (20), Hip abd/add (2 20x) Seated Therapy Exercises: Ankle pumps, Long arc quads, Hip flexion, Hamstring Curls, Hip abd/add, Glut set Seated Reps: 20 Treatments [id number] Pt performed and completed all Exs listed above, along with single leg drop, trunk rotation, and abdominal contraction 2 20x. Pt ambulated from room down recinos with window and back to the [facility], pt ambulated back to room. Once PT was concluded, pt was seated in recliner with call light and tray in reach and all needs met. [id number] Pt completed all seated Exs listed above. Pt ambulated with quad cane, and required a RB. Once PT was concluded, Pt was seated back in recliner, with call light and tray in reach, and all needs met. Assessment Current Status: Good Progress Pt would benefit from continued PT to improve on strength in lower extremities, and activity tolerance with GT. Pt would benefit from continued PT to improve on ambulation with quad cane. PT [facility] Goals [facility] Goals PT [facility] Goals Time Frame: Jan 29, 2022 Roll Left & Right (QC): 6 Sit to Lying (QC): 6 Lying-Sitting on Side/Bed(QC): 6 Sit to Stand (QC): 6 Chair/Dfu-yb-Kywye Xfer(QC): 6 Toilet Transfer (QC): 6 Car Transfer (QC): 6 Does the Patient Walk: Yes Walk 10 feet (QC): 6 Walk 50ft with 2 Turns (QC): 6 Walk 150 ft (QC): 6 Walking 10ft on Uneven Surface: 6 1 Step (curb) (QC): 4 4 Steps (QC): 4 12 Steps (QC): 4 Picking up an Object (QC): 6 Wheel 50 feet with 2 turns (QC: 9 Type: N/A Wheel 150 feet: 9 Type: N/A PT Plan Problem List Problem List: Activity Tolerance, Functional Strength Treatment/Plan Treatment Plan: Continue Plan of Care Treatment Plan: Bed Mobility, Concurrent Therapy, Education, Functional Activ ity Terry, Functional Strength, Group Therapy, Gait, Safety, Therapeutic Exercise, Transfers Treatment Duration: Jan 29, 2022 Frequency: At least 5 of 7 days/Wk (IRF) Estimated Hrs Per Day: 1.5 hours per day Patient and/or Family Agrees t: Yes Safety Risks/Education Patient Education: Gait Training Teaching Recipient: Patient Teaching Methods: Discussion Response to Teaching: Verbalize Understanding Time/GCodes Time In: 1100 Time Out: 1200 Total Billed Treatment Time: 60 Total Billed Treatment [id number] 1, EX 3 (40), GT (20) [id number] 1, EX (15), GT (15) AKANKSHA TAYLOR PLANNING AND ANALYSIS MANAGER January 11, 2022 11:54
[2022-01-11] MEDS: PANTOPRAZOLE 40 MG (PROTONIX) TAB PO SCH (12:05)
--- NOTE | 2022-01-11 13:42 | Occupational Ther Daily Note ---
OT Current Status-Daily Note Subjective Pt up in recliner, agreeable to OT Tx. Mental Status/Objective Patient Orientation: Normal For Age Attachments: Other-See Comments (C-Collar) ADL-Treatment Therapy Code Descriptions/Definitions Functional [place] Measure: 0=Not Assessed/NA 4=Minimal Assistance 1=Total Assistance 5=Supervision or Setup 2=Maximal Assistance 6=Modified [place] 3=Moderate Assistance 7=Complete IndependenceSCALE: Activities may be completed with or without assistive devices. 9-Mfvqbsxfzr-plapogl completes the activity by him/herself with no assistance from a helper. 5-Set-up or Clean-up Assistance-helper sets up or cleans up; patient completes activity. [place] assists only prior to or following the activity. 4-Supervision or Touching Assistance-helper provides verbal cues and/or touching/steadying and/or contact guard assistance as patient completes activity. Assistance may be provided throughout the activity or intermittently. 3-Partial/Moderate Assistance-helper does LESS THAN HALF the effort. [place] lifts, holds or supports trunk or limbs, but provides less than half the effort. 2-Substantial/Maximal Assistance-helper does MORE THAN HALF the effort. [place] lifts or holds trunk or limbs and provides more than half the effort. 3-Rlukjhfwu-vqkpwd does ALL the effort. Patient does none of the effort to complete the activity. Or, the assistance of 2 or more helpers is required for the patient to complete the activity. If activity was not attempted, code reason: 7-Patient Refused. 9-Not Applicable-not attempted and the patient did not perform the activity before the current illness, exacerbation or injury. 10-Not Attempted due to Environmental Limitations-(lack of equipment, weather restraints, etc.). 88-Not Attempted due to Medical Conditions or Safety Concerns. Toileting Hygiene (QC): 6 Toilet Transfer (QC): 6 Other Treatment Pt up in recliner, agreeable to OT Tx. Pt used FWW to perform functional mobility to elevator, down to 1st floor and to courtyard. Pt did not require any seated rest breaks with mobility, on LOB noted. Pt sat on bench, completing 3x10 reps of commuter pilot squeezes with graded clothespins (1-3lb resistance) to increase fine motor strength. Pt used FWW to return to [facility] and back to her room, able to navigate FWW across various threshold and surfaces (side walk, door threshold, elevator threshold, etc), no LOB. Pt returned to her room, completed toileting independently, then transferred to recliner. Post tx, pt in recliner, call light in reach and all needs met. Education OT Patient Education: Correct positioning, Energy conservation, Modified ADL techniques, Progress toward Goal/Update tx plan, Purpose of tx/functional activities Teaching Recipient: Patient Teaching Methods: Discussion Response to Teaching: Verbalize Understanding OT Short Term Goals Short Term Goals Time Frame: January 19, 2022 Toileting hygiene: 4 Shower/bathe self: 4 Lower body dressin OT [facility] Goals [facility] Goals Time Frame: Jan 28, 2022 Eating (QC): 6 Oral Hygiene (QC): 6 Toileting Hygiene (QC): 6 Shower/Bathe Self (QC): 5 Upper Body Dressing (QC): 6 Lower Body Dressing (QC): 6 On/Off Footwear (QC): 6 Additional Goals: 1-Demonstrate ADL Tasks, 2-Verbalize Understanding, 3-Imp roveStrength/Terry 1=Demonstrate adherence to instructed precautions during ADL tasks. 2=Patient will verbalize/demonstrate understanding of assistive devices/modifications for ADL. 3=Patient will improve strength/tolerance for activity to enable patient to perform ADL's. OT Education/Plan Problem List/Assessment Assessment: Decreased Activ Tolerance, Decreased UE Strength, Impaired Funct Balance, Impaired I ADL's, Impaired Self-Care Skills Discharge Recommendations Plan/Recommendations: Continue POC Treatment Plan/Plan of Care Patient would benefit from OT for education, treatment and training to promote independence in ADL's, mobility, safety and/or upper extremity function for ADL's. Plan of Care: ADL Retraining, Functional Mobility, Group Exercise/Act as Ind, UE Funct Exercise/Act Treatment Duration: Jan 28, 2022 Frequency: At least 5 of 7 days/Wk (IRF) Estimated Hrs Per Day: 1.5 hours per day Rehab Potential: Good Time/GCodes Start Time: 13:00 Stop Time: 13:30 Total Time Billed (hr/min): 30 Billed Treatment Time 1, FA 2 MEGA POWELL OT January 11, 2022 13:42
[2022-01-11 14:01] VITALS: BP 135/62
[2022-01-11 19:52] VITALS: BP 144/78
[2022-01-12] MEDS: KCL 10 MEQ TAB (MICRO K) PO SCH (06:15)
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
[2022-01-12] MEDS: polyethylene glycoL POWDER 17 GM (MIRALAX) PACK PO SCH ×2 (07:45→21:05)
[2022-01-12] MEDS: hydrALAZINE (APRESOLINE) 25 MG TAB PO SCH ×3 (07:45→20:58)
[2022-01-12] MEDS: PANTOPRAZOLE 40 MG (PROTONIX) TAB PO SCH (07:45)
[2022-01-12] MEDS: DOCUSATE SODIUM 100 MG (COLACE) CAP PO SCH ×2 (07:45→20:58)
[2022-01-12] MEDS: DICLOFENAC 1% GEL 100 GM (VOLTAREN) TUBE TOP SCH ×4 (07:46→21:03)
[2022-01-12] MEDS: SENNA W/DOCUSATE (SENOKOT S) TABLET PO SCH ×2 (07:46→20:58)
[2022-01-12 07:50] VITALS: BP 145/63
--- NOTE | 2022-01-12 09:59 | Occupational Ther Daily Note ---
OT Current Status-Daily Note Subjective Pt agreeable to OT tx. ADL-Treatment Therapy Code Descriptions/Definitions Functional [place] Measure: 0=Not Assessed/NA 4=Minimal Assistance 1=Total Assistance 5=Supervision or Setup 2=Maximal Assistance 6=Modified [place] 3=Moderate Assistance 7=Complete IndependenceSCALE: Activities may be completed with or without assistive devices. 8-Wwmmtcmxcy-smgypmo completes the activity by him/herself with no assistance from a helper. 5-Set-up or Clean-up Assistance-helper sets up or cleans up; patient completes activity. [place] assists only prior to or following the activity. 4-Supervision or Touching Assistance-helper provides verbal cues and/or touching/steadying and/or contact guard assistance as patient completes activity. Assistance may be provided throughout the activity or intermittently. 3-Partial/Moderate Assistance-helper does LESS THAN HALF the effort. [place] lifts, holds or supports trunk or limbs, but provides less than half the effort. 2-Substantial/Maximal Assistance-helper does MORE THAN HALF the effort. [place] lifts or holds trunk or limbs and provides more than half the effort. 7-Fufjxybnz-jjtsll does ALL the effort. Patient does none of the effort to complete the activity. Or, the assistance of 2 or more helpers is required for the patient to complete the activity. If activity was not attempted, code reason: 7-Patient Refused. 9-Not Applicable-not attempted and the patient did not perform the activity before the current illness, exacerbation or injury. 10-Not Attempted due to Environmental Limitations-(lack of equipment, weather restraints, etc.). 88-Not Attempted due to Medical Conditions or Safety Concerns. Shower/Bathe Self (QC): 5 (set up, pt able to wash/dry all parts.) Upper Body Dressing (QC): 3 (Min A with c-collar, able to don/doff pullover shirt.) Lower Body Dressing (QC): 5 (set up ) On/Off Footwear: 5 (set up ) Other Treatment Pt in recliner, agreeable to OT tx. Pt used quad cane to go into bathroom, transfer to DC, and complete showering and dressing. Pt transferred back to recliner, nurse present to change dressing and OT changed pads on C-Collar post shower. Pt educated on donning/doffing c-collar. Post tx, pt in recliner, call light in reach and all needs met. Education OT Patient Education: Correct positioning, Energy conservation, Modified ADL techniques, Progress toward Goal/Update tx plan, Purpose of tx/functional activities Teaching Recipient: Patient Teaching Methods: Discussion Response to Teaching: Verbalize Understanding OT Short Term Goals Short Term Goals Time Frame: January 19, 2022 Toileting hygiene: 4 Shower/bathe self: 4 Lower body dressin OT Snf Goals Bowl Topper Goals Time Frame: Jan 28, 2022 Eating (QC): 6 Oral Hygiene (QC): 6 Toileting Hygiene (QC): 6 Shower/Bathe Self (QC): 5 Upper Body Dressing (QC): 6 Lower Body Dressing (QC): 6 On/Off Footwear (QC): 6 Additional Goals: 1-Demonstrate ADL Tasks, 2-Verbalize Understanding, 3- ImproveStrength/Terry 1=Demonstrate adherence to instructed precautions during ADL tasks. 2=Patient will verbalize/demonstrate understanding of assistive devices/modifications for ADL. 3=Patient will improve strength/tolerance for activity to enable patient to perform ADL's. OT Education/Plan Problem List/Assessment Assessment: Decreased Activ Tolerance, Decreased UE Strength, Impaired Funct Balance, Impaired I ADL's, Impaired Self-Care Skills Discharge Recommendations Plan/Recommendations: Continue POC Treatment Plan/Plan of Care Patient would benefit from OT for education, treatment and training to promote independence in ADL's, mobility, safety and/or upper extremity function for ADL's. Plan of Care: ADL Retraining, Functional Mobility, Group Exercise/Act as Ind, UE Funct Exercise/Act Treatment Duration: Jan 28, 2022 Frequency: At least 5 of 7 days/Wk (IRF) Estimated Hrs Per Day: 1.5 hours per day Rehab Potential: Good Time/GCodes Start Time: 09:00 Stop Time: 10:00 Total Time Billed (hr/min): 60 Billed Treatment Time 1, ADL 4 MEGA POWELL OT January 12, 2022 09:59
--- NOTE | 2022-01-12 11:12 | Physical Therapy Daily Note ---
PT Daily Note-Current Subjective Pt sitting in recliner upon arrival. Pt agrees to PT. PARTY PLAN DEMONSTRATOR will administer Tinetti's test for balance to check availability of Ad titus in room. Pain Location: No Pain Reported Mental Status Patient Orientation: Person, Place, Time, Situation Attachments: Other-See Comments (Cervical collar ) Transfers SCALE: Activities may be completed with or without assistive devices. 9-Orydddatsf-mealozx completes the activity by him/herself with no assistance from a helper. 5-Set-up or Clean-up Assistance-helper sets up or cleans up; patient completes activity. [place] assists only prior to or following the activity. 4-Supervision or Touching Assistance-helper provides verbal cues and/or rena lucía/steadying and/or contact guard assistance as patient completes activity. Assistance may be provided throughout the activity or intermittently. 3-Partial/Moderate Assistance-helper does LESS THAN HALF the effort. [place] lifts, holds or supports trunk or limbs, but provides less than half the effort. 2-Substantial/Maximal Assistance-helper does MORE THAN HALF the effort. [place] lifts or holds trunk or limbs and provides more than half the effort. 3-Qcbouuwlt-phqjut does ALL the effort. Patient does none of the effort to complete the activity. Or, the assistance of 2 or more helpers is required for the patient to complete the activity. If activity was not attempted, code reason: 7-Patient Refused. 9-Not Applicable-not attempted and the patient did not perform the activity before the current illness, exacerbation or injury. 10-Not Attempted due to Environmental Limitations-(lack of equipment, weather restraints, etc.). 88-Not Attempted due to Medical Conditions or Safety Concerns. Sit to Stand (QC): 5 Weight Bearing Full Weight Bearing Full Weight Bearing Gait Training Does the Patient Walk?: Yes Distance: 150', 200' Walk 10 feet (QC): 5 Walk 50 ft with 2 Turns(QC): 5 Walk 150 ft (QC): 5 Gait Persons Needed: 1 Gait Assistive Device: Cane Large Base Quad LBQC continued to be worked on although pt reports fatigue quicker and requires increased training program manager w/L hand. Pt feels more comfortable using FWW but will continue to work on LBQC. Treatments PARTY PLAN DEMONSTRATOR completes Tinetti's test during tx as well as focus on LBQC ambulation vs. FWW. Pt returns to room at end of tx. All needs met, resting in recliner with call light in hand. Assessment Current Status: Good Progress Tinetti's score of 23/28. Pt is still a little nervous using LBQC vs FWW but doesn't rely on FWW for stability. PT Water Quality Control Engineer Goals Long-Term Goals PT Water Quality Control Engineer Goals Time Frame: Jan 29, 2022 Roll Left & Right (QC): 6 Sit to Lying (QC): 6 Lying-Sitting on Side/Bed(QC): 6 Sit to Stand (QC): 6 Chair/Lbb-fl-Pjbur Xfer(QC): 6 Toilet Transfer (QC): 6 Car Transfer (QC): 6 Does the Patient Walk: Yes Walk 10 feet (QC): 6 Walk 50ft with 2 Turns (QC): 6 Walk 150 ft (QC): 6 Walking 10ft on Uneven Surface: 6 1 Step (curb) (QC): 4 4 Steps (QC): 4 12 Steps (QC): 4 Picking up an Object (QC): 6 Wheel 50 feet with 2 turns (QC: 9 Type: N/A Wheel 150 feet: 9 Type: N/A PT Plan Treatment/Plan Treatment Plan: Continue Plan of Care Treatment Plan: Bed Mobility, Concurrent Therapy, Education, Functional Activity Terry, Functional Strength, Group Therapy, Gait, Safety, Therapeutic Exercise, Transfers Treatment Duration: Jan 29, 2022 Frequency: At least 5 of 7 days/Wk (IRF) Estimated Hrs Per Day: 1.5 hours per day Patient and/or Family Agrees t: Yes Safety Risks/Education Patient Education: Gait Training, Transfer Techniques, Correct Positioning, Safety Issues Teaching Recipient: Patient Teaching Methods: Discussion Response to Teaching: Verbalize Understanding Time/GCodes Time In: 800 Time Out: 900 Total Billed Treatment Time: 60 Total Billed Treatment 1, GT x2 (30m) & FA x2 (30m) TERESA TRIPATHI PARTY PLAN DEMONSTRATOR January 12, 2022 11:12
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
[2022-01-12 14:27] VITALS: BP 113/54
--- NOTE | 2022-01-12 14:34 | Therapy Group Daily Note ---
Therapy Daily Group Note Patient Education Topic Home Safety, Other List Below (FWW safety, ARU orientation) Exercises LE Seated Exercise, UE Exercise Session Ratio (pt:therapist): 4:1 Goal of Session: Education on ARU Expectations, UE/LE Strengthing, Use of Adaptive Equipment Goal Met for this Session: Yes Pt Benefit of Group: Contributions to Others, F/U Use of Strategies @Home, Increased Functional Safety, Increased Functional Strength, Improved Cognition, Recognition of Peers, Socialization Other/Notes Pt ambulated with no AD to [facility] area for OT/PT group. Group consisted of introductions(name, place living, favorite summer activity), socialization, B UE/LE seated exercises, ARU orientation, FWW safety and home safety education. Pt introduced self appropriately and actively listened to peers. Pt was able to interact with peers, give personal stories that involved educational topics and conversations that was discussed during group. Pt acknowledge understanding of educational topics of home safety, FWW safety and ARU orientation. B UE/LE seat exercises were tolerated and able to complete WFL. After session, pt sitting in recliner with call light/phone in reach. All needs met in room. Start Time: 13:00 Stop Time: 14:10 Total Billed Treatment Time: 70 Total Billed Treatment 1-YUDY RUFF January 12, 2022 14:34
[2022-01-12 19:45] VITALS: BP 154/69
[2022-01-13] MEDS: KCL 10 MEQ TAB (MICRO K) PO SCH (05:59)
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
[2022-01-13 07:46] VITALS: BP 132/70
[2022-01-13] MEDS: hydrALAZINE (APRESOLINE) 25 MG TAB PO SCH ×3 (08:26→20:20)
[2022-01-13] MEDS: PANTOPRAZOLE 40 MG (PROTONIX) TAB PO SCH (08:27)
[2022-01-13] MEDS: DICLOFENAC 1% GEL 100 GM (VOLTAREN) TUBE TOP SCH ×4 (08:28→20:22)
[2022-01-13] MEDS: DOCUSATE SODIUM 100 MG (COLACE) CAP PO SCH ×2 (08:44→21:02)
[2022-01-13] MEDS: SENNA W/DOCUSATE (SENOKOT S) TABLET PO SCH ×2 (08:44→21:02)
[2022-01-13] MEDS: polyethylene glycoL POWDER 17 GM (MIRALAX) PACK PO SCH ×2 (08:44→19:11)
--- NOTE | 2022-01-13 11:03 | Occupational Ther Daily Note ---
OT Current Status-Daily Note Subjective Pt agreeable to OT tx, appears slightly anxious about discharging tomorrow, as she hasn't even been up to bathroom by herself. OT provided education on pt's current level of function, and informs pt that it is hospital policy to have assistance. Pt states she feels better post tx. Mental Status/Objective Attachments: Other-See Comments (C-Collar) ADL-Treatment Therapy Code Descriptions/Definitions Functional [place] Measure: 0=Not Assessed/NA 4=Minimal Assistance 1=Total Assistance 5=Supervision or Setup 2=Maximal Assistance 6=Modified [place] 3=Moderate Assistance 7=Complete IndependenceSCALE: Activities may be completed with or without assistive devices. 5-Zegksiiati-dvecxfa completes the activity by him/herself with no assistance from a helper. 5-Set-up or Clean-up Assistance-helper sets up or cleans up; patient completes activity. [place] assists only prior to or following the activity. 4-Supervision or Touching Assistance-helper provides verbal cues and/or touching/steadying and/or contact guard assistance as patient completes activity. Assistance may be provided throughout the activity or intermittently. 3-Partial/Moderate Assistance-helper does LESS THAN HALF the effort. [place] lifts, holds or supports trunk or limbs, but provides less than half the effort. 2-Substantial/Maximal Assistance-helper does MORE THAN HALF the effort. [place] lifts or holds trunk or limbs and provides more than half the effort. 3-Pbpuohfvc-cldcfa does ALL the effort. Patient does none of the effort to complete the activity. Or, the assistance of 2 or more helpers is required for the patient to complete the activity. If activity was not attempted, code reason: 7-Patient Refused. 9-Not Applicable-not attempted and the patient did not perform the activity before the current illness, exacerbation or injury. 10-Not Attempted due to Environmental Limitations-(lack of equipment, weather restraints, etc.). 88-Not Attempted due to Medical Conditions or Safety Concerns. Eating (QC): 6 Oral Hygiene (QC): 6 Upper Body Dressing (QC): 4 (Supervision with donning/doffing c-collar. Pt independent with shirt.) Lower Body Dressing (QC): 6 On/Off Footwear: 6 Toileting Hygiene (QC): 6 Toilet Transfer (QC): 6 [facility] tx. Pt educated on donning/doffing C-Collar, able to complete with supervision. Pt also instructed on changing pads on C- collar, she demo'd understanding with supervision. Pt used FWW to go to laundry room, pt able to put clothes in washer and start washer independently. Pt returned to her room, completed toileting and oral care independently. Pt used FWW to perform functional mobility to therapy gym. OT tx focused on increasing BUE strength and activity tolerance. Pt stood to complete modified "Scrabble" task, 2 times total with seated rest break between. Pt returned to her room, transferring to recliner. Post tx, pt in recliner, call light in reach and all needs met. Education OT Patient Education: Correct positioning, Energy conservation, Modified ADL techniques, Progress toward Goal/Update tx plan, Purpose of tx/functional activities, Rehab process Teaching Recipient: Patient Teaching Methods: Discussion Response to Teaching: Verbalize Understanding OT Short Term Goals Short Term Goals Time Frame: January 19, 2022 Toileting hygiene: 4 Shower/bathe self: 4 Lower body dressin OT Halfway Goals Duplication Specialist Goals Time Frame: Jan 28, 2022 Eating (QC): 6 (met) Oral Hygiene (QC): 6 (met) Toileting Hygiene (QC): 6 (met) Shower/Bathe Self (QC): 5 (met) Upper Body Dressing (QC): 6 (Not met. Supervision with c-collar, IND with shirt) Lower Body Dressing (QC): 6 (met) On/Off Footwear (QC): 6 (met) Additional Goals: 1-Demonstrate ADL Tasks, 2-Verbalize Understanding, 3-Improve Strength/Terry 1=Demonstrate adherence to instructed precautions during ADL tasks. 2=Patient will verbalize/demonstrate understanding of assistive devices/modifications for ADL. 3=Patient will improve strength/tolerance for activity to enable patient to pe rform ADL's. OT Education/Plan Problem List/Assessment Assessment: Decreased Activ Tolerance, Decreased UE Strength, Impaired I ADL's Discharge Recommendations Plan/Recommendations: Continue POC Treatment Plan/Plan of Care Patient would benefit from OT for education, treatment and training to promote independence in ADL's, mobility, safety and/or upper extremity function for ADL's. Plan of Care: ADL Retraining, Functional Mobility, Group Exercise/Act as Ind, UE Funct Exercise/Act Treatment Duration: Jan 28, 2022 Frequency: At least 5 of 7 days/Wk (IRF) Estimated Hrs Per Day: 1.5 hours per day Rehab Potential: Good Time/GCodes Start Time: 09:15 Stop Time: 10:45 Total Time Billed (hr/min): 90 Billed Treatment Time 1, ADL 2 (35'), FA 4 (55') MEGA POWELL OT January 13, 2022 11:03
--- NOTE | 2022-01-13 11:48 | Physical Therapy Daily Note ---
PT Daily Note-Current Subjective Patient in recliner pre tx, agrees to PT, has minor neck and left arm pain per patient. Appearance Patient in recliner post tx with nurse call, phone, tray, all needs met. Mental Status Patient Orientation: Person, Place, Situation cervical collar Transfers SCALE: Activities may be completed with or without assistive devices. 7-Cdhghgrhrn-ypgroij completes the activity by him/herself with no assistance from a helper. 5-Set-up or Clean-up Assistance-helper sets up or cleans up; patient completes activity. [place] assists only prior to or following the activity. 4-Supervision or Touching Assistance-helper provides verbal cues and/or touching/steadying and/or contact guard assistance as patient completes activity. Assistance may be provided throughout the activity or intermittently. 3-Partial/Moderate Assistance-helper does LESS THAN HALF the effort. [place] lifts, holds or supports trunk or limbs, but provides less than half the effort. 2-Substantial/Maximal Assistance-helper does MORE THAN HALF the effort. [place] lifts or holds trunk or limbs and provides more than half the effort. 9-Afugaaays-dhdscp does ALL the effort. Patient does none of the effort to complete the activity. Or, the assistance of 2 or more helpers is required for the patient to complete the activity. If activity was not attempted, code reason: 7-Patient Refused. 9-Not Applicable-not attempted and the patient did not perform the activity before the current illness, exacerbation or injury. 10-Not Attempted due to Environmental Limitations-(lack of equipment, weather restraints, etc.). 88-Not Attempted due to Medical Conditions or Safety Concerns. Roll Left & Right (QC): 6 Sit to Lying (QC): 6 Lying to Sitting/Side of Bed(Q: 6 Sit to Stand (QC): 6 Chair/Msk-mn-Uucth Xfer(QC): 5 Toilet Transfer (QC): 5 Car Transfer (QC): 5 Patient performs rolling and supine <-> sit with independence, sit <-> stand independent, transfers setup, car transfer setup. Patient needs occasional cues for direction. Weight Bearing Full Weight Bearing Full Weight Bearing Gait Training Distance: 300', 120' Walk 10 feet (QC): 4 Walk 50 ft with 2 Turns(QC): 4 Walk 150 ft (QC): 4 Walking 10ft/uneven surface-QC: 4 Gait Persons Needed: 1 Gait Assistive Device: Cane Single Point Patient can ambulate 300' with a single point cane with SBA (including 50' with at least 2 turns of 90 degrees and 10' over an uneven surface), patient initially wanted to practice using a quad cane but a single point cane is more appropriate for her Wheelchair Training Does the Pt Use a Wheelchair?: No Wheel 50 ft with 2 turns (QC): 9 Wheel 150 ft (QC): 9 Stair Training Stair Training: Handrails/: 2 handrails #of Steps: 12 1 Step (curb) (QC): 4 4 Steps (QC): 4 12 Steps (QC): 4 Stairs: Pattern: Step to Patient can go up and down 12 steps using 2 handrails with SBA, needs cues for foot placement Balance Picking up an Object (QC): 4 (SBA using a liquor bridge operator helper) Exercises NuStep Minutes: 15 NuStep Workload: 5 (arms not used due to lifting restrictions) Neuromuscular Tinetti Assessment Tool score 25/28 Treatments bed mobility and transfers, ambulation, stair training, gait training, and functional strengthening Assessment Current Status: Fair Progress Patient is discharging tomorrow. Patient can have occasional unsteady moments with turning during ambulation but so far has been able to catch herself with no LOB, this is probably a little moreso due to patient being a little impulsive and turning abruptly on occasion without being prepared. PT Correction Goals Correction Goals PT Correction Goals Time Frame: Jan 29, 2022 Roll Left & Right (QC): 6 Sit to Lying (QC): 6 Lying-Sitting on Side/Bed(QC): 6 Sit to Stand (QC): 6 Chair/Zpz-hq-Zqtir Xfer(QC): 6 Toilet Transfer (QC): 6 Car Transfer (QC): 6 Does the Patient Walk: Yes Walk 10 feet (QC): 6 Walk 50ft with 2 Turns (QC): 6 Walk 150 ft (QC): 6 Walking 10ft on Uneven Surface: 6 1 Step (curb) (QC): 4 4 Steps (QC): 4 12 Steps (QC): 4 Picking up an Object (QC): 6 Wheel 50 feet with 2 turns (QC: 9 Type: N/A Wheel 150 feet: 9 Type: N/A PT Plan Problem List Problem List: Activity Tolerance, Functional Strength, Safety, Balance, Gait, Transfer, Bed Mobility, ROM Treatment/Plan Treatment Plan: Continue Plan of Care Treatment Plan: Bed Mobility, Concurrent Therapy, Education, Functional Activity Terry, Functional Strength, Group Therapy, Gait, Safety, Therapeutic Exercise, Transfers Treatment Duration: Jan 29, 2022 Frequency: At least 5 of 7 days/Wk (IRF) Estimated Hrs Per Day: 1.5 hours per day Patient and/or Family Agrees t: Yes Safety Risks/Education Patient Education: Gait Training, Transfer Techniques, Steps, Reviewed Precautions, Correct Positioning, Safety Issues Teaching Recipient: Patient Teaching Methods: Demonstration, Discussion Response to Teaching: Reinforcement Needed Time/GCodes Time In: 1100 Time Out: 1200 Total Billed Treatment Time: 60 Total Billed Treatment 1 visit EX 15' NM 10' FA 35' CISCO TAN PT January 13, 2022 11:48
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
--- NOTE | 2022-01-13 13:37 | Physical Therapy Daily Note ---
PT Daily Note-Current Subjective Patient in recliner pre tx, agrees to PT, voices no complaints of pain. Appearance Patient in recliner post tx with nurse call, phone, tray, all needs met. Mental Status Patient Orientation: Person, Place, Situation cervical collar Transfers SCALE: Activities may be completed with or without assistive devices. 1-Ytsuqlbppz-drfwzty completes the activity by him/herself with no assistance from a helper. 5-Set-up or Clean-up Assistance-helper sets up or cleans up; patient completes activity. [place] assists only prior to or following the activity. 4-Supervision or Touching Assistance-helper provides verbal cues and/or touching/steadying and/or contact guard assistance as patient completes activity. Assistance may be provided throughout the activity or intermittently. 3-Partial/Moderate Assistance-helper does LESS THAN HALF the effort. [place] lifts, holds or supports trunk or limbs, but provides less than half the effort. 2-Substantial/Maximal Assistance-helper does MORE THAN HALF the effort. [place] lifts or holds trunk or limbs and provides more than half the effort. 0-Mwshasybp-rxlfzs does ALL the effort. Patient does none of the effort to complete the activity. Or, the assistance of 2 or more helpers is required for the patient to complete the activity. If activity was not attempted, code reason: 7-Patient Refused. 9-Not Applicable-not attempted and the patient did not perform the activity before the current illness, exacerbation or injury. 10-Not Attempted due to Environmental Limitations-(lack of equipment, weather restraints, etc.). 88-Not Attempted due to Medical Conditions or Safety Concerns. Sit to Stand (QC): 5 Chair/Irh-oa-Egexa Xfer(QC): 5 Weight Bearing Full Weight Bearing Full Weight Bearing Gait Training Distance: 300', 150' Walk 10 feet (QC): 4 Walk 50 ft with 2 Turns(QC): 4 Walk 150 ft (QC): 4 Gait Assistive Device: Cane Single Point slow but steady ambulation Exercises LAQ alternating for 5 min with 5# ankle weights Treatments transfers, ambulation, LE strengthening Assessment Current Status: Fair Progress Patient has been practicing ambulation using a single point cane and is doing well but would benefit from using a rolling walker on her own to decrease risk of falls. PT Shelter Goals Shelter Goals PT Director Franchise Sales Goals Time Frame: Jan 29, 2022 Roll Left & Right (QC): 6 Sit to Lying (QC): 6 Lying-Sitting on Side/Bed(QC): 6 Sit to Stand (QC): 6 Chair/Pje-db-Nrxwm Xfer(QC): 6 Toilet Transfer (QC): 6 Car Transfer (QC): 6 Does the Patient Walk: Yes Walk 10 feet (QC): 6 Walk 50ft with 2 Turns (QC): 6 Walk 150 ft (QC): 6 Walking 10ft on Uneven Surface: 6 1 Step (curb) (QC): 4 4 Steps (QC): 4 12 Steps (QC): 4 Picking up an Object (QC): 6 Wheel 50 feet with 2 turns (QC: 9 Type: N/A Wheel 150 feet: 9 Type: N/A PT Plan Problem List Problem List: Activity Tolerance, Functional Strength, Safety, Balance, Gait, Transfer, Bed Mobility, ROM Treatment/Plan Treatment Plan: Continue Plan of Care Treatment Plan: Bed Mobility, Concurrent Therapy, Education, Functional Activity Terry, Functional Strength, Group Therapy, Gait, Safety, Therapeutic Exercise, Transfers Treatment Duration: Jan 29, 2022 Frequency: At least 5 of 7 days/Wk (IRF) Estimated Hrs Per Day: 1.5 hours per day Patient and/or Family Agrees t: Yes Safety Risks/Education Patient Education: Gait Training, Transfer Techniques, Correct Positioning, Safety Issues Teaching Recipient: Patient Teaching Methods: Demonstration, Discussion Response to Teaching: Reinforcement Needed Time/GCodes Time In: 1315 Time Out: 1345 Total Billed Treatment Time: 30 Total Billed Treatment 1 visit FA 30' CISCO TAN PT January 13, 2022 13:37
[2022-01-13 20:00] VITALS: BP 136/81
[2022-01-14] MEDS: KCL 10 MEQ TAB (MICRO K) PO SCH (06:06)
[2022-01-14] MEDS ORDERED: OXC5T PO (06:07)
[2022-01-14] MEDS ORDERED: DICL100G13 TOP (06:07)
[2022-01-14] MEDS ORDERED: PANT40TA52 PO (06:07)
[2022-01-14] MEDS ORDERED: AMLO5TAB4 PO (06:07)
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
[2022-01-14 07:24] VITALS: BP 129/60
[2022-01-14] MEDS: hydrALAZINE (APRESOLINE) 25 MG TAB PO SCH (07:54)
[2022-01-14] MEDS: PANTOPRAZOLE 40 MG (PROTONIX) TAB PO SCH (07:55)
[2022-01-14] MEDS: SENNA W/DOCUSATE (SENOKOT S) TABLET PO SCH (07:56)
[2022-01-14] MEDS: DICLOFENAC 1% GEL 100 GM (VOLTAREN) TUBE TOP SCH (07:56)
[2022-01-14] MEDS: DOCUSATE SODIUM 100 MG (COLACE) CAP PO SCH (07:56)
[2022-01-14] MEDS: polyethylene glycoL POWDER 17 GM (MIRALAX) PACK PO SCH (07:56)
[2022-01-14 08:25] VITALS: BP 129/60
--- NOTE | 2022-01-14 08:28 | Therapy Team Discharge Summary ---
Therapy Discharge Summary Discharge Recommendations Date of Discharge Physical Therapy Patient came to rehab with traumatic spinal cord dysfunction. Upon evaluation patient performed rolling with CGA/SBA, sit to supine min/modA, supine to sit CGA/SBA, sit <-> stand min/mod assist, transfers min/mod assist, car transfer CGA/SBA, ambulated 150' with a rolling walker with CGA/SBA (including 50' with at least 2 turns of 90 degrees but was min/mod assist for 10' over an uneven surface), went up and down 8 steps using 2 handrails with min/mod assist. Patient has been performing bed mobility and transfer training, balance and endurance training, functional strengthening, stair training, gait training, and education. Patient has made good progress but has only met her custodial goals for stairs, bed mobility, and sit <-> stand. Now, patient performs rolling and supine <-> sit with independence, sit <-> stand independent, transfers setup, car transfer setup, ambulate 300' with a single point cane with SBA (including 50' with at least 2 turns of 90 degrees and 10' over an uneven surface), can go up and down 12 steps using 2 handrails with SBA, and can pickle solution maker an object from the floor with SBA using a nurse healthcare manager. Patient is being discharged from this facility today and will be discharged from PT at this time. Roll Left to Right (QC): 6 Sit to Lying (QC): 6 Lying to Sitting/Side of Bed(Q: 6 Sit to Stand (QC): 5 Chair/Cas-sq-Etard Xfer(QC): 5 Toilet Transfer (QC): 6 Car Transfer (QC): 5 Does the Patient Walk: Yes Mode of Locomotion: Walk Anticipated Mode of Locomotion: Walk Walk 10 feet (QC): 4 Walk 50 ft with 2 Turns(QC): 4 Walk 150 ft (QC): 4 Walking 10ft on uneven surface: 4 Distance: 150' x 3 Gait Assistive Device: Cane Single Point Does the Pt Use a Wheelchair: No Wheel 50 ft with 2 turns (QC): 9 Wheel 150 ft (QC): 9 #of Steps: 12 1 Step (curb) (QC): 4 4 Steps (QC): 4 12 Steps (QC): 4 Balance Sitting Static: Normal Balance Sitting Dynamic: Normal Balance-Standing Static: Fair Picking up an Object (QC): 4 (SBA using a nurse healthcare manager) Occupational Therapy Decreased Activ Tolerance, Decreased UE Strength, Impaired I ADL's Eating (QC): 6 Oral Hygiene (QC): 6 Shower/Bathe Self (QC): 5 (set up, pt able to wash/dry all parts.) Upper Body Dressing (QC): 4 (Supervision with donning/doffing c-collar. Pt independent with shirt.) Lower Body Dressing (QC): 6 On/Off Footwear (QC): 6 Toileting Hygiene (QC): 6 PT [facility] Goals [facility] Goals PT [facility] Goals Time Frame: Jan 29, 2022 Roll Left to Right (QC): 6 Sit to Lying (QC): 6 Lying-Sitting on Side/Bed(QC): 6 Sit to Stand (QC): 6 Chair/Kcl-uf-Kximo Xfer(QC): 6 Car Transfer (QC): 6 Does the Patient Walk: Yes Walk 10 feet (QC): 6 Walk 10ft-Uneven Surface(QC): 6 Walk 50ft with 2 Turns (QC): 6 Walk 150 ft (QC): 6 Wheel 50 feet with 2 turns (QC: 9 1 Step (curb) (QC): 4 4 Steps (QC): 4 12 Steps (QC): 4 Picking up an Object (QC): 6 OT Custodial Laborer Goals [facility] Goals Time Frame: Jan 28, 2022 Eating (QC): 6 (met) Oral Hygiene (QC): 6 (met) Shower/Bathe Self (QC): 5 (met) Upper Body Dressing (QC): 6 (Not met. Supervision with c-collar, IND with shirt) Lower Body Dressing (QC): 6 (met) On/Off Footwear (QC): 6 (met) Toileting Hygiene (QC): 6 (met) Toilet/Commode Transfer (QC): 6 Additional Goals: 1-Demonstrate ADL Tasks, 2-Verbalize Understanding, 3- ImproveStrength/Terry 1=Demonstrate adherence to instructed precautions during ADL tasks. 2=Patient will verbalize/demonstrate understanding of assistive devices/mod ifications for ADL. 3=Patient will improve strength/tolerance for activity to enable patient to perform ADL's. CISCO TAN PT January 14, 2022 08:28
--- NOTE | 2022-01-14 10:32 | Therapy Team Discharge Summary ---
Therapy Discharge Summary Discharge Recommendations Date of Discharge January 14, 2022 at 08:25 Physical Therapy Roll Left to Right (QC): 6 Sit to Lying (QC): 6 Lying to Sitting/Side of Bed(Q: 6 Sit to Stand (QC): 5 Chair/Ivt-ww-Xqkvl Xfer(QC): 5 Toilet Transfer (QC): 6 Car Transfer (QC): 5 Does the Patient Walk: Yes Mode of Locomotion: Walk Anticipated Mode of Locomotion: Walk Walk 10 feet (QC): 4 Walk 50 ft with 2 Turns(QC): 4 Walk 150 ft (QC): 4 Walking 10ft on uneven surface: 4 Distance: 150' x 3 Gait Assistive Device: Cane Single Point Does the Pt Use a Wheelchair: No Wheel 50 ft with 2 turns (QC): 9 Wheel 150 ft (QC): 9 #of Steps: 12 1 Step (curb) (QC): 4 4 Steps (QC): 4 12 Steps (QC): 4 Balance Sitting Static: Normal Balance Sitting Dynamic: Normal Balance-Standing Static: Fair Picking up an Object (QC): 4 (SBA using a second miller) Occupational Therapy Pt admitted to ARU with traumatic spinal cord dysfunction. At [facility], pt was independent with ADLs and functional mobility. Upon initial evaluation, pt required set up assist with eating, CGA oral care, SBA footwear, and min A with showering, upper body dressing, lower body dressing, and toileting. OT tx focused on increasing BUE strength and activity tolerance, increasing safety and independence with ADLs and functional mobility, and education on management of C-Collar. Pt made good progress towards goals, attaining all goals except UBD (Supervision required with C-Collar, independent with shirt). Pt discharged from facility, d/c from OT. Decreased Activ Tolerance, Decreased UE Strength, Impaired I ADL's Eating (QC): 6 Oral Hygiene (QC): 6 Shower/Bathe Self (QC): 5 (set up, pt able to wash/dry all parts.) Upper Body Dressing (QC): 4 (Supervision with donning/doffing c-collar. Pt independent with shirt.) Lower Body Dressing (QC): 6 On/Off Footwear (QC): 6 Toileting Hygiene (QC): 6 PT Cosmetic Manager Goals Cosmetic Manager Goals PT Cosmetic Manager Goals Time Frame: Jan 29, 2022 Roll Left to Right (QC): 6 Sit to Lying (QC): 6 Lying-Sitting on Side/Bed(QC): 6 Sit to Stand (QC): 6 Chair/Ltx-ur-Rtrui Xfer(QC): 6 Car Transfer (QC): 6 Does the Patient Walk: Yes Walk 10 feet (QC): 6 Walk 10ft-Uneven Surface(QC): 6 Walk 50ft with 2 Turns (QC): 6 Walk 150 ft (QC): 6 Wheel 50 feet with 2 turns (QC: 9 1 Step (curb) (QC): 4 4 Steps (QC): 4 12 Steps (QC): 4 Picking up an Object (QC): 6 OT Cosmetic Manager Goals [facility] Goals Time Frame: Jan 28, 2022 Eating (QC): 6 (met) Oral Hygiene (QC): 6 (met) Shower/Bathe Self (QC): 5 (met) Upper Body Dressing (QC): 6 (Not met. Supervision with c-collar, IND with shirt) Lower Body Dressing (QC): 6 (met) On/Off Footwear (QC): 6 (met) Toileting Hygiene (QC): 6 (met) Toilet/Commode Transfer (QC): 6 Additional Goals: 1-Demonstrate ADL Tasks, 2-Verbalize Understanding, 3- ImproveStrength/Terry 1=Demonstrate adherence to instructed precautions during ADL tasks. 2=Patient will verbalize/demonstrate understanding of assistive devices/modifications for ADL. 3=Patient will improve strength/tolerance for activity to enable patient to perform ADL's. MEGA POWELL OT January 14, 2022 10:32
== END 2022-01-14 08:25 | disposition home or self-care (01) | DRG 949 ==
LOC: EEVIPCON 12:15
PROVIDERS: ADMIT Internal Medicine; ATTEND Internal Medicine
DX: S14.105D Unspecified injury at C5 level of cervical spinal cord, subsequent encounter (principal); I82.612 Acute embolism and thrombosis of superficial veins of left upper extremity; S12.400D Unspecified displaced fracture of fifth cervical vertebra, subsequent encounter for fracture with routine healing; S12.500D Unspecified displaced fracture of sixth cervical vertebra, subsequent encounter for fracture with routine healing; I10 Essential (primary) hypertension; K21.9 Gastro-esophageal reflux disease without esophagitis; E87.6 Hypokalemia; Z79.891 Long term (current) use of opiate analgesic; Z98.1 Arthrodesis status; Y04.8XXD Assault by other bodily force, subsequent encounter; Y07.01 Husband, perpetrator of maltreatment and neglect
CPT/HCPCS: 36415; 80053; 85025

== ENCOUNTER 2022-02-13 16:21 | Emergency (ER) | payer MEDICARE ==
[~2022-02-13] VITALS: Ht 167 cm; Wt 93.0 kg
[~2022-02-13 16:21] MED LIST changes: -ACETAMINOPHEN 325 MG TABLET PO PRN; -ALPRAZolam 0.25 MG (XANAX) TAB PO PRN; +AMLO5TAB4 PO; -BISACODYL 10 MG SUPP (DULCOLAX) PR PRN; +DICL100G13 TOP; -DOCUSATE SODIUM 100 MG (COLACE) CAP PO PRN; -FLEET ENEMA ADULT 1 EA BTL PR PRN; -LACTULOSE SYRUP 10GM/15ML (ENULOSE) 30ML UDC PO PRN; -LOPERAMIDE 2 MG (IMODIUM) TABLET PO PRN; -MELATONIN 3 MG TABLET PO PRN; -ONDANSETRON 4 MG (ZOFRAN) ORAL DISSOLVE TAB PO PRN; +OXC5T PO; +PANT40TA52 PO; -diphenhydrAMINE 25 MG TAB (BENADRYL) PO PRN; -guaiFENesin/CODEINE (ROBITUSSIN AC) 10ML UDC PO PRN
[2022-02-13 16:25] VITALS: BP 165/75
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
--- NOTE | 2022-02-13 17:09 | Diagnostic Imaging Report ---
INDICATION: Acute knee pain. EXAMINATION: Knee, 02/13/2022. FINDINGS: There is a moderate joint effusion with no fracture or dislocation. IMPRESSION: Joint effusion with no fracture. Dictated by: Dictated on workstation # [id number]
[2022-02-13] MEDS ORDERED: OXYC5TAB PO (17:34)
== END 2022-02-13 17:52 | disposition home or self-care (01) ==
LOC: EDUNIT# 16:21 → ER 16:23
DX: M25.562 Pain in left knee (principal); M25.462 Effusion, left knee; Z28.311 Partially vaccinated for COVID-19
CPT/HCPCS: 73562; 99283; L1830